=== PATIENT | male | born 2000 | race Caucasian/White ===

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

== ENCOUNTER 2023-10-20 22:48 | Emergency (ER) | payer MEDICAID ==
[~2023-10-20] VITALS: Ht 170.2 cm; Wt 77.0 kg
[2023-10-20 22:59] VITALS: BP 109/70; RESP 18; TEMP 98.3; O2SAT 100
[2023-10-20 23:37] VITALS: PULSE 108
[2023-10-21 00:57] LABS: GLUCOSE URINE NEGATIVE (NEGATIVE); KETONES URINE NEGATIVE (NEGATIVE)
[2023-10-21 01:31] LABS: CLARITY URINE CLEAR (CLEAR); COLOR URINE YELLOW (YELLOW); LEUKOCYTE ESTERASE URINE NEGATIVE (NEGATIVE); NITRITE URINE NEGATIVE (NEGATIVE); OCCULT BLOOD URINE NEGATIVE (NEGATIVE); PH URINE 5.5 (4.5-8.0); PROTEIN URINE TRACE (NEGATIVE); SPECIFIC GRAVITY URINE 1.042 (1.005-1.030); UROBILINOGEN URINE 1 E.U./dL (0.2-1.0)
[2023-10-21 01:32] LABS: BACTERIA URINE TRACE; CALCIUM OXALATE CRYSTALS URINE 1+ /lpf; RBC URINE NONE SEEN /hpf (0-2); SQUAMOUS EPITHELIAL CELL URINE NONE SEEN /lpf (RARE/1+); WBC URINE NONE SEEN /hpf (0-2)
[2023-10-21] MEDS ORDERED: IBUP-2029 MT (02:27)
== END 2023-10-21 02:17 | disposition home or self-care (01) ==
LOC: ER 22:48
DX: N50.3 Cyst of epididymis (principal); J45.909 Unspecified asthma, uncomplicated
CPT/HCPCS: 76870; 81003; 93976; 99291

== ENCOUNTER 2023-10-30 17:42 | Emergency (ER) | payer MEDICAID ==
[~2023-10-30] VITALS: Ht 170.2 cm; Wt 76.0 kg
[~2023-10-30 17:42] MED LIST: IBUP-2029 MT
[2023-10-30 17:47] VITALS: O2SAT 99
[2023-10-30 19:06] VITALS: BP 124/88; PULSE 80; RESP 16; TEMP 98.2
== END 2023-10-30 19:09 | disposition home or self-care (01) ==
LOC: ER 17:42
DX: R07.89 Other chest pain (principal); J45.909 Unspecified asthma, uncomplicated
CPT/HCPCS: 71045; 76604; 93005; 93880; 99284